=== PATIENT | male | born 1950 | race Caucasian/White ===

== ENCOUNTER 2018-04-04 14:11 | Emergency (ER) | payer OTHER ==
[2018-04-04] MEDS ORDERED: NS 1,000 ML IV ONE (14:57)
--- NOTE | 2018-04-04 15:06 | EDPHY ---
H & P Time Seen by Provider: 04/04/18 14:49 HPI/ROS: HPI Dog bite left hip. Concerned about continued symptoms. 67-year-old male by private vehicle from the [facility]. This patient reports he had a dog bite to his left lateral/posterior hip and gluteal region on March 11. The dog was a husky lab mix. The dog is reported to be immunized. The patient has been on Augmentin for the last 7 days. He reports continued symptoms of intermittent chills and fatigue. He was evaluated at the [facility] and sent here for MRI to evaluate for a possible deep space infection. He showed me pictures of the initial wound which showed very superficial abrasion/scratch like wounds to the lateral aspect of the left mid hip and gluteal region. ROS: Constitutional: No fever, as above. Respiratory: No cough. No shortness of breath. Cardiac: No chest pain, no palpitations. Gastrointestinal: No abdominal pain, no vomiting, no diarrhea. Musculoskeletal: No back pain. No neck pain. As above. Skin: No rashes. Neurological: No headache. No focal weakness or altered sensation. Past medical history: No significant past medical history. He is not a diabetic. Social history: Nonsmoker. Here by himself. No alcohol. Physical Exam: General Appearance: Alert, mildly anxious but not in distress. This patient is responding to questions appropriately and in full sentences. This patient appears well-hydrated and well-nourished. Eyes: Pupils equal and round no pallor or injection. No lid edema, erythema or injection. Left hip exam: No significant findings. The skin and soft tissue involving the left hip, gluteal and proximal thigh area are unremarkable. There is a well -healed superficial scar where 1 of the bite yoon use to be. No associated soft tissue edema, erythema, warmth, crepitus on palpation. No significant findings. The left hip joint ranges without significant pain or impingement. No pain elicited on axial compression of the left hip joint. Left lower extremity is neurovascularly intact. The patient complains of pain deep to the wound area.\ Neurological: Motor sensory function is grossly intact. Cranial nerves are normal. Gait is normal. Skin: Warm and dry, no rashes. Musculoskeletal: Neck is supple and nontender. Extremities are symmetrical. All joints range without pain or impingement. Psychiatric: No agitation. No depression. Database: EKG: Imaging: Left hip and gluteal MRI without contrast: Normal. No evidence of infection or other pathology. Results were discussed with staff radiologist Dr. Chun Dupree. Procedures: Emergency department course: Triage vital signs reviewed. He is moderately hypertensive. Moderately tachycardic in triage with a heart rate of 105. Tachycardia resolved on my exam. He is afebrile. Patient was sent to the emergency department by the staff the [facility] in to evaluate for possible deep space infection involving his left hip and left gluteal region secondary to a dog bite which occurred on March 11. MRI without contrast of the left hip and gluteal region to be obtained. Patient endorses. 5:30 p.m., patient re-evaluated. Resting comfortably at this time. I discussed the results of his MRI. I discussed the results of his blood work. I feel he is safe for discharge at this time. His vital signs have remained normal throughout his emergency department course. Follow-up and return to emergency department precautions reviewed with him. All of his questions were answered. He was discharged in good condition. Differential Diagnosis: The differential diagnosis on this patient includes but is not limited to arthritis of left hip, viral syndrome. Deep space infection of the left hip and left gluteal region, cellulitis, necrotizing fasciitis unlikely. This represents a partial list of diagnoses considered. These considerations are based on history, physical exam, past history, reassessment and diagnostic testing. Smoking Status: Never smoked Constitutional: Initial Vital Signs Temperature (C) 36.6 C 04/04/18 14:14 Heart Rate 105 H 04/04/18 14:14 Respiratory Rate 18 04/04/18 14:14 Blood Pressure 178/114 H 04/04/18 14:14 O2 Sat (%) 95 04/04/18 14:14 O2 Delivery Mode Room Air Allergies/Adverse Reactions: No Known Allergies Allergy (Unverified 04/04/18 14:13) Home Medications: Medication Instructions Recorded NK [No Known Home Meds] 04/04/18 Medical Decision Making - Data Points Laboratory Results: Laboratory Results 04/04/18 15:10 04/04/18 15:10 04/04/18 04/04/18 04/04/18 16:15 15:10 15:10 WBC 9.61 10^3/uL H 10^3/uL (3.80-9.50) RBC 5.78 10^6/uL 10^6/uL (4.40-6.38) Hgb 17.0 g/dL g/dL (13.7-17.5) Hct 49.7 % % (40.0-51.0) MCV 86.0 fL fL (81.5-99.8) MCH 29.4 pg pg (27.9-34.1) MCHC 34.2 g/dL g/dL (32.4-36.7) RDW 13.5 % % (11.5-15.2) Plt Count 288 10^3/uL 10^3/uL (150-400) MPV 9.5 fL fL (8.7-11.7) Neut % (Auto) 84.3 % H % (39.3-74.2) Lymph % (Auto) 9.8 % L % (15.0-45.0) [place] % (Auto) 4.9 % % (4.5-13.0) Eos % (Auto) 0.3 % L % (0.6-7.6) Baso % (Auto) 0.5 % % (0.3-1.7) Nucleat RBC Rel Count 0.0 % % (0.0-0.2) Absolute Neuts (auto) 8.10 10^3/uL H 10^3/uL (1.70-6.50) Absolute Lymphs (auto) 0.94 10^3/uL L 10^3/uL (1.00-3.00) Absolute Monos (auto) 0.47 10^3/uL 10^3/uL (0.30-0.80) Absolute Eos (auto) 0.03 10^3/uL 10^3/uL (0.03-0.40) Absolute Basos (auto) 0.05 10^3/uL 10^3/uL (0.02-0.10) Absolute Nucleated RBC 0.00 10^3/uL 10^3/uL (0-0.01) Immature Gran % 0.2 % % (0.0-1.1) Immature Gran # 0.02 10^3/uL 10^3/uL (0.00-0.10) VBG Lactic Acid 1.3 mmol/L mmol/L (0.7-2.1) Sodium 141 mEq/L mEq/L (135-145) Potassium 4.1 mEq/L mEq/L (3.3-5.0) Chloride 104 mEq/L mEq/L (97-110) Carbon Dioxide 25 mEq/l mEq/l (22-31) Anion Gap 12 mEq/L mEq/L (8-16) BUN 19 mg/dL mg/dL (7-23) Creatinine 0.9 mg/dL mg/dL (0.7-1.3) Estimated GFR > 60 Glucose 109 mg/dL H mg/dL (70-100) Calcium 10.0 mg/dL mg/dL (8.5-10.4) Medications Given: Discontinued Medications Sodium Chloride (Ns) 1,000 mls @ 0 mls/hr IV ONCE ONE; Wide Open PRN Reason: Protocol Stop: 04/04/18 14:58 Last Admin: 04/04/18 15:15 Dose: 1,000 mls Departure - Departure Disposition: Home, Routine, Self-Care Clinical Impression: History of dog bite, Left hip pain Condition: Good Instructions: Animal Bite (ED) Additional Instructions: Read and follow provided instructions. Follow-up with your primary care physician in 1-2 days for re-evaluation. Ibuprofen dosin mg every 6 hours with meals for the next 3 days only. Take only as needed for pain. Return to the emergency department for worsening symptoms, worsening pain, fever , swelling, discoloration or other serious concerns. Referrals: NONE *PRIMARY CARE P,. [Primary Care Provider] - As per Instructions
[2018-04-04 15:17] LABS: PLATELET COUNT 288 10^3/uL (150-400)
[2018-04-04 17:55] VITALS: BP 163/109
== END 2018-04-04 17:55 | disposition home or self-care (01) ==
DX: M25.552 Pain in left hip (principal); E86.9 Volume depletion, unspecified; Z87.828 Personal history of other (healed) physical injury and trauma